=== PATIENT | male | born 1990 | race Two or more races ===

== ENCOUNTER → 2017-02-03 | Outpatient (CLI) | payer OTHER ==
--- NOTE | ~2017-02-03 | US5 ---
[facility] A Service of [facility] & [facility] RADIOLOGY TEXT RESULTS PATIENT: JAMILA LEON LOCATION: [facility] : 86 UNIT #: [id number] AGE: [address]: Rosario Greene MD SEX: M ORDER DR: [id number] [facility] [address] [place], [place] [address] [id number] O MR#: [id number] Acc #: [id number] NAME: JAMILA LEON : 1990 SEX: M STUDY DATE/TIME: 02/03/2017 10:08 UNIT: [facility] ROOM: STUDY DESCRIPTION: US Abdominal Complete Attending Physician: Rosario Greene M.D. Ordering Physician: Rosario Greene M.D. Primary Care Physician: Rafi Yost M.D. MEDICAL IMAGING REPORT This report is preliminary unless electronic signature is present EXAM Abdominal ultrasound complete 02/03/2017 HISTORY Abnormally elevated liver enzymes on lab work performed 2 weeks ago. FINDINGS The liver is homogeneous in echotexture and demonstrates no cystic or solid mass lesions. The intra and extrahepatic bile ducts are not dilated. The gallbladder is normal with no evidence of cholelithiasis, wall thickening or pericholecystic fluid. The common duct measures 4 mm. The pancreas and spleen are normal. The spleen measures 8.2 cm in greatest diameter. The visualized portions of the abdominal aorta and inferior vena cava are within normal limits. The kidneys are normal bilaterally. IMPRESSION Negative abdominal ultrasound Dictated by... Marlo Hermosillo M.D. THIS IS AN ELECTRONICALLY VERIFIED REPORT Marlo Hermosillo M.D. at 02/06/2017 7:38 AM SARAH/gin TD: 02/04/2017 00:00 JOB #: [id number] MEDICAL IMAGING REPORT Page 1 of 1 COPY
== END | disposition home or self-care (01) ==
LOC: CGUS 09:50
DX: R74.8 Abnormal levels of other serum enzymes (principal)
CPT/HCPCS: 76700